=== PATIENT | female | born 1985 | race Caucasian/White ===

== ENCOUNTER 2020-09-15 14:49 | Outpatient (CLI) | payer OTHER ==
[2020-09-15 16:56] LABS: Hemoglobin 13.3 g/dL (12.0-15.5); Mean Corpuscular HGB CONC 32.8 g/dL (32.0-36.0); Mean Corpuscular Hemoglobin 31.4 pg (27.0-33.0); Mean Corpuscular Volume 95.8 fl (81.6-98.3); Mean Platelet Volume 10.9 fl (7.4-10.4); Platelet Count 288 10x3/uL (150-450); RBC Distribution Width 11.9 % (11.5-14.5); Red Blood Cell (RBC) Count 4.24 10x6/uL (3.90-5.03); White Blood Cell (WBC) Count 8.2 10x3/uL (3.5-10.5)
[2020-09-16 03:09] LABS: SARS-CoV-2 PCR by NAA Not Detected (NotDetected)
== END 2020-09-15 14:50 | disposition home or self-care (01) ==
LOC: CSHLAB 14:49
PROVIDERS: ATTEND Obstetrics & Gynecology
DX: Z01.812 Encounter for preprocedural laboratory examination (principal); Z20.822 Contact with and (suspected) exposure to COVID-19
CPT/HCPCS: 85027; 87635; U0003; U0005

== ENCOUNTER 2022-07-07 09:20 | Inpatient (IN) | payer OTHER ==
[2022-07-07] MEDS ORDERED: Misoprostol 200 MCG TAB PR PRN (09:21)
[2022-07-07] MEDS ORDERED: hydrALAZINE 20 MG/ML VIAL SLOW IVP PRN ×2 (09:21→18:46)
[2022-07-07] MEDS ORDERED: Promethazine HCl 25 MG/ML VIAL IM PRN ×3 (09:21→18:46)
[2022-07-07] MEDS ORDERED: Acetaminophen 500 MG TAB PO PRN (09:21)
[2022-07-07] MEDS ORDERED: Butorphanol Tartrate 1 MG/ML VIAL SLOW IVP PRN (09:21)
[2022-07-07] MEDS ORDERED: Ondansetron PF 4 MG/2 ML Vial IVP PRN ×3 (09:21→18:46)
[2022-07-07] MEDS ORDERED: Ibuprofen 800 MG TAB PO PRN (09:21)
[2022-07-07] MEDS ORDERED: Diphenoxylate HCl/Atropine Tablet PO PRN ×2 (09:21)
[2022-07-07] MEDS ORDERED: Lidocaine 1% (PF) 30 ML VIAL SC PRN (09:21)
[2022-07-07] MEDS ORDERED: HYDROcodone/Acetaminophen 5/325 mg Tablet PO PRN ×2 (09:21)
[2022-07-07] MEDS ORDERED: Docusate 100 MG CAP PO PRN (09:21)
[2022-07-07] MEDS ORDERED: NS w/ Oxytocin 30 units 500 ML IV SCH ×3 (09:30→19:00)
[2022-07-07 10:19] VITALS: BMI 29.5
[2022-07-07 10:23] LABS: Hemoglobin 13.3 g/dL (12.0-15.5); Mean Corpuscular HGB CONC 35.2 g/dL (32.0-36.0); Mean Corpuscular Hemoglobin 33.6 pg (27.0-33.0); Mean Corpuscular Volume 95.5 fl (81.6-98.3); Mean Platelet Volume 11.1 fl (7.4-10.4); Platelet Count 222 10x3/uL (150-450); RBC Distribution Width 12.1 % (11.5-14.5); Red Blood Cell (RBC) Count 3.96 10x6/uL (3.90-5.03); White Blood Cell (WBC) Count 11.5 10x3/uL (3.5-10.5)
[2022-07-07 10:58] LABS: SARS-CoV-2 NAA Rapid Test Not Detected (NotDetected)
[2022-07-07 10:59] LABS: Syphilis Antibody Nonreactive (Nonreactive); Syphilis Antibody Index 0.05 S/CO (<1.00 Non-Reactive)
[2022-07-07 11:02] LABS: HBSAg Index 0.14 S/CO (0-0.99); HIV (1/2) Antibody/Antigen Non-Reactive (NonReactive); HIV 1/2 INDEX 0.05 S/CO (<1.00); Hep B Surf Ag Non-Reactive S/CO (NonReactive)
[2022-07-07] MEDS ORDERED: Fentanyl 2 mcg/Bup 0.1% Cadd 100 ML ONE (11:07)
[2022-07-07] MEDS: Fentanyl 2 mcg/Bupivacaine 0.1% Cassette 100 ML EPIDURAL SCH ×2 (11:25→17:08)
[2022-07-07] MEDS ORDERED: Acetaminophen 325 MG TAB PO PRN (11:28)
[2022-07-07] MEDS ORDERED: Lactated Ringer's 500 ML IV PRN (11:28)
[2022-07-07] MEDS ORDERED: ePHEDrine Sulfate 50 MG/10 ML VIAL SLOW IVP PRN (11:28)
[2022-07-07] MEDS ORDERED: Moisturizing Cream (Eucerin) 113 GM JAR TOP PRN (11:28)
[2022-07-07] MEDS ORDERED: Naloxone HCl 0.4 mg/ml Vial IVP PRN ×2 (11:28)
[2022-07-07] MEDS ORDERED: diphenhydrAMINE 50 MG/ML VIAL IVP PRN (11:28)
[2022-07-07] MEDS ORDERED: Communication Order-Pharmacy FS SCH (11:30)
[2022-07-07] MEDS ORDERED: Calcium Carbonate 500 MG ChewTAB PO PRN (15:15)
[2022-07-07] MEDS ORDERED: Bisacodyl 10 MG SUPP PR PRN (18:46)
[2022-07-07] MEDS ORDERED: Misoprostol 200 MCG TAB VAG PRN (18:46)
[2022-07-07] MEDS ORDERED: Preparation H Ointment 28 GM TUBE PR PRN (18:46)
[2022-07-07] MEDS ORDERED: Boostrix 0.5 ML (Tdap) VIAL (>/=7 yrs of age) IM ONE (18:46)
[2022-07-07] MEDS ORDERED: Benzocaine-Menthol 82.5 ML CAN TOP PRN (18:46)
[2022-07-07] MEDS ORDERED: Lanolin Ointment 7 GM TUBE TOP PRN (18:46)
[2022-07-07] MEDS ORDERED: diphenhydrAMINE 25 MG CAP PO PRN (18:46)
[2022-07-07] MEDS ORDERED: Milk Of Magnesia 30 ML UDCUP PO PRN (18:46)
[2022-07-07] MEDS ORDERED: Witch Hazel-Glycerin 1 EACH JAR TOP PRN (18:48)
[2022-07-07] MEDS: Docusate 100 MG CAP PO SCH (23:11)
[2022-07-07] MEDS: Lactated Ringer's 1,000 ML IV SCH ×2 (23:11→23:16)
[2022-07-07] MEDS: Ibuprofen 800 MG TAB PO SCH (23:15)
[2022-07-08] MEDS ORDERED: HYDROcodone/Acetaminophen 5/325 mg Tablet PO PRN ×3 (02:43→11:28)
[2022-07-08] MEDS: HYDROcodone/Acetaminophen 5/325 mg Tablet PO PRN ×2 (02:48→19:53)
[2022-07-08 05:04] LABS: Hemoglobin 11.8 g/dL (12.0-15.5); Mean Corpuscular HGB CONC 34.5 g/dL (32.0-36.0); Mean Corpuscular Hemoglobin 33.1 pg (27.0-33.0); Mean Corpuscular Volume 96.1 fl (81.6-98.3); Mean Platelet Volume 10.9 fl (7.4-10.4); Platelet Count 205 10x3/uL (150-450); RBC Distribution Width 12.3 % (11.5-14.5); Red Blood Cell (RBC) Count 3.56 10x6/uL (3.90-5.03); White Blood Cell (WBC) Count 17.2 10x3/uL (3.5-10.5)
[2022-07-08] MEDS: Ibuprofen 800 MG TAB PO SCH ×2 (05:58→14:36)
[2022-07-08] MEDS: Ferrous Sulfate 325 MG TAB PO SCH ×2 (08:46→19:29)
[2022-07-08] MEDS: Docusate 100 MG CAP PO SCH (08:46)
[2022-07-08] MEDS ORDERED: Prenatal Vitamin 1 TAB PO SCH (09:00)
[2022-07-08] MEDS ORDERED: Zolpidem Tartrate 5 MG TAB PO PRN (11:28)
[2022-07-08 11:41] VITALS: BP 110/64; TEMP 98.5
== END 2022-07-08 20:30 | disposition home or self-care (01) | DRG 807 ==
LOC: CSHLD 09:20 → CSHPED 22:45
PROVIDERS: ADMIT Obstetrics & Gynecology; ATTEND Obstetrics & Gynecology
PROC: 10E0XZZ Delivery of Products of Conception, External Approach (ICD-10-PCS; principal; 2022-07-07)
PROC: 0HQ9XZZ Repair Perineum Skin, External Approach (ICD-10-PCS; 2022-07-07)
DX: O42.02 Full-term premature rupture of membranes, onset of labor within 24 hours of rupture (principal); Z37.0 Single live birth; Z20.822 Contact with and (suspected) exposure to COVID-19; Z3A.39 39 weeks gestation of pregnancy; Z79.899 Other long term (current) drug therapy; O70.0 First degree perineal laceration during delivery
CPT/HCPCS: 51702; 85027; 86780; 86850; 86900; 86901; 87340; 87389; J2405; J2590; U0002